=== PATIENT | male | born 1985 | race Caucasian/White ===

== ENCOUNTER 2016-10-08 05:40 | Emergency (ER) | payer SELFPAY ==
[~2016-10-08] VITALS: Ht 172.7 cm; Wt 75.0 kg
[2016-10-08 05:43] VITALS: BP 164/98; PULSE 94; RESP 15; TEMP 98.5; O2SAT 99
--- NOTE | 2016-10-08 05:59 | PD ---
HPI Chief Complaint: Cold / Flu Symptoms Time Seen by Provider: 05:55 Travel History International Travel<30 days: No Contact w/Intl Traveler<30days: No Traveled to known affect area: No History of Present Illness HPI Patient is a healthy 30-year-old male who presents emergency department with complaint of flulike symptoms. Patient states that for the last 5 days he has been ill with sore throat, hoarse voice. He "lost his voice" for 2 days but is now back, but still's hoarse. He notes cough productive of clear sputum with a scant amount of blood streaked within the sputum. No history of DVT, PE, coagulopathy, recent travel. No TB exposure. PFSH Past Medical History Medical History: Denies Significant Hx Social History Tobacco Use: No Allergies-Medications (Allergen,Severity, Reaction): Coded Allergies: No Known Allergies (Unverified , 10/08/16) Review of Systems Except as stated in HPI: all other systems reviewed are Neg Physical Exam Narrative GENERAL: Well-appearing male in no acute distress SKIN: Focused skin assessment warm/dry. HEAD: Normocephalic. EYES: No scleral icterus. No injection or drainage. ENT: Mucous membranes pink and moist. NECK: Supple CARDIOVASCULAR: Regular rate and rhythm. No murmur appreciated. RESPIRATORY: No accessory muscle use. Clear to auscultation. Breath sounds equal bilaterally. GASTROINTESTINAL: Abdomen soft, non-tender, nondistended. MUSCULOSKELETAL: No obvious deformities. No edema. NEUROLOGICAL: Awake and alert. Normal speech. PSYCHIATRIC: Appropriate mood and affect; insight and judgment normal. Data Data Last Documented VS Vital Signs Date Time Temp Pulse Resp B/P Pulse Ox O2 Delivery O2 Flow Rate FiO2 10/08/16 05:43 98.5 94 15 164/98 99 Room Air MDM Medical Decision Making Medical Screen Exam Complete: Yes Emergency Medical Condition: Yes Medical Record Reviewed: Yes Differential Diagnosis 30-year-old male healthy with 5 days of flulike symptoms, coarse voice, sore throat, cough productive of sputum with minimal blood streaks. Differential includes bronchitis, laryngitis, viral syndrome and less likely PE, tuberculosis Narrative Course Patient reassured. Will be given prednisone for bronchitis and discharged home. Diagnosis Primary Impression: Bronchitis Referrals: Primary Care Physician as needed Additional Instructions: Steroids as prescribed. Med/Other Pt SpecificInfo: Prescription(s) given Scripts Prednisone 50 Mg Tab50 Mg PO DAILY 5 Days Ref 0 Prov:Richa Lui MD 10/08/16 Disposition: 01 DISCHARGE HOME Condition: Stable Richa Lui MD Oct 08, 2016 05:59
[2016-10-08] MEDS ORDERED: PRED50 PO (06:01)
== END 2016-10-08 06:27 | disposition home or self-care (01) ==
LOC: NEPE 05:40
DX: J40 Bronchitis, not specified as acute or chronic (principal)
CPT/HCPCS: 99283